=== PATIENT | female | born 1935 | race Caucasian/White ===

== ENCOUNTER → 2017-01-28 | Outpatient (CLI) | payer OTHER ==
[~2017-01-28] MED LIST: ASPEC81 PO; ASPI81TA28 PO; DYZ PO; HYDR1ELX13 PO; LEVO112T2 PO; PRLSR20 PO; TRIA37.5 PO
[2017-01-28 10:04] LABS: BASO % 0.9 %; BASO ABS # 0.08 K/uL (0-0.2); COMPLETE YES; EOS % 1.7 %; HEMATOCRIT 42.8 % (37-47); IG% 0.2 %; LYMPH % 20.2 %; LYMPH ABS # 1.89 K/uL (1.2-3.4); MEAN CELL VOLUME 87.3 fL (80-100); MEAN CORPUSCULAR HEMOGLOBIN 28.8 pg (25-34); MEAN CORPUSCULAR HGB CONC 32.9 g/dl (32-36); MEAN PLATELET VOLUME 10.4 fL (7.4-10.4); MONO % 10.7 %; NEUT % 66.3 %; PLATELET COUNT 248 K/uL (130-400); WHITE BLOOD COUNT 9.37 K/uL (4.8-10.8)
[2017-01-28 10:16] LABS: ALT/SGPT 18 U/L (12-78); BLOOD UREA NITROGEN 20 mg/dl (7-18); BUN/CREATININE RATIO 25.5 (10-20); CALCIUM 9.2 mg/dl (8.5-10.1); CARBON DIOXIDE 31 mmol/L (21-32); CHLORIDE 105 mmol/L (98-107); GLUCOSE 79 mg/dl (70-99); POTASSIUM 3.7 mmol/L (3.5-5.1); SODIUM 143 mmol/L (136-145)
[2017-01-28 10:26] LABS: ALB/GLOB RATIO 0.8 (0.9-2); ALKALINE PHOSPHATASE 95 U/L (45-117); AST/SGOT 15 U/L (15-37)
== END | disposition home or self-care (01) ==
LOC: C.LABVPSUW 09:39
PROVIDERS: ATTEND Internal Medicine Critical Care Medicine
DX: D64.9 Anemia, unspecified (principal); M10.9 Gout, unspecified; E03.9 Hypothyroidism, unspecified; N28.9 Disorder of kidney and ureter, unspecified

== ENCOUNTER 2017-02-24 10:56 | Emergency (ER) | payer OTHER ==
[~2017-02-24] VITALS: Ht 160 cm; Wt 69.4 kg
[~2017-02-24 10:56] MED LIST changes: -ASPI81TA28 PO; -TRIA37.5 PO
[2017-02-24 11:01] VITALS: TEMP 36.8; Ht 160 cm; Wt 69.4 kg
[2017-02-24 11:20] VITALS: O2SAT 95
[2017-02-24] MEDS ORDERED: PRLSR20 PO (11:34)
[2017-02-24] MEDS ORDERED: ASPI81TA28 PO (11:34)
[2017-02-24] MEDS ORDERED: TRIA37.5 PO (11:35)
[2017-02-24 11:36] LABS: HEMATOCRIT 43.2 % (37-47); MEAN CELL VOLUME 87.6 fL (80-100); MEAN CORPUSCULAR HGB CONC 33.1 g/dl (32-36); MEAN PLATELET VOLUME 10.4 fL (7.4-10.4); PLATELET COUNT 220 K/uL (130-400); RED BLOOD COUNT 4.93 M/uL (4.2-5.4)
--- NOTE | 2017-02-24 11:36 | DIAGNOSTIC IMAGING REPORT ---
CHEST ONE VIEW PORTABLE CLINICAL HISTORY: Atypical chest pain COMPARISON STUDY: No previous studies for comparison. FINDINGS: The cardiac and mediastinal contours remain stable. No pneumothorax visualized. There is no failure. There is no lobar consolidation. There is minor left basilar atelectasis/scarring. Increased markings within the left apex, likely representing a summation.[ IMPRESSION: AP portable study. No evidence of failure. No evidence of lobar consolidation. Electronically signed by: Carlos Torres M.D. 02/24/2017 11:34 AM Dictated Date/Time: 02/24/2017 11:33 AM
[2017-02-24 11:50] LABS: PARTIAL THROMBOPLASTIN RATIO 1.1; PROTHROMBIN TIME (PATIENT) 10.5 SECONDS (9.0-12.0)
[2017-02-24 11:58] LABS: BUN/CREATININE RATIO 21.3 (10-20); CALCIUM 9.4 mg/dl (8.5-10.1); CREATININE 0.76 mg/dl (0.60-1.20); POTASSIUM 3.6 mmol/L (3.5-5.1)
[2017-02-24 12:03] LABS: ALB/GLOB RATIO 0.9 (0.9-2); CKMB/CK RATIO 1.6 (0-3.0)
[2017-02-24] MEDS ORDERED: OPTIRAY 320 IV PRN (13:30)
--- NOTE | 2017-02-24 14:07 | DIAGNOSTIC IMAGING REPORT ---
CHEST CTA for PULMONARY ARTERIES CT DOSE: 397.14 mGycm HISTORY: Chest pain dyspnea TECHNIQUE: Multiaxial CT images of the chest were performed following the intravenous administration of contrast to evaluate the pulmonary arteries. Maximal intensity projection images were also obtained. COMPARISON STUDY: None. FINDINGS: There is a normal caliber thoracic aorta with no evidence for dissection. There is no evidence for pulmonary embolus. Somewhat compromised exam due to respiratory and somatic motion. Trace pleural fluid posterior costophrenic angles. Mild nonspecific mid and lower lung interstitial change. Small fixed hiatal hernia. IMPRESSION: 1. No evidence for pulmonary embolus.. 2. Very small bilateral pleural effusions. 3. Nonspecific bibasilar interstitial prominence. 4. Small hiatal hernia. Electronically signed by: Eber Benedict M.D. 02/24/2017 2:06 PM Dictated Date/Time: 02/24/2017 2:01 PM
--- NOTE | 2017-02-24 14:24 | EMERGENCY ROOM VISIT NOTE ---
History Report prepared by Parth: Segundo Serrano Under the Supervision of: Dr. Pawel Jones M.D. First contact with patient: 12:25 Chief Complaint: CHEST PAIN Stated Complaint: CHEST PAIN Nursing Triage Summary: pt reports chets pain started yesterday. History of Present Illness The patient is a 81 year old female who presents to the Emergency Room with complaints of persistent chest pain beginning yesterday. She states that she woke up with pain in her left shoulder and arm yesterday as well. She states that the pain in her shoulder and arm has resolved, but her chest pain is still present. The patient states that her chest pain is worsened with movement and deep breathing. She is on Prilosec, aspirin and a water pill. She denies any increased leg swelling, nausea, vomiting, abdominal pain, or SOB. Source of History: patient, friend Onset: Yesterday Position: chest Timing: other (persistent) Modifying Factors (Worsening): breathing (deep), movement Associated Symptoms: No SOB, No nausea, No vomiting Note: The patient denies any increased leg swelling. She also complains of resolved left shoulder and left arm pain. Review of Systems See HPI for pertinent positives & negatives. A total of 10 systems reviewed and were otherwise negative. Past Medical & Surgical Medical Problems: (1) Diverticulitis (2) Diverticulosis (3) Gout (4) H/O gastroesophageal reflux (GERD) (5) HTN (hypertension) (6) Hypothyroidism Old medical records were reviewed. Nurse's notes were reviewed and I agree with. Family History No pertinent family history stated. Social History Smoking Status: Never Smoker Drug Use: none Marital Status: Occupation Status: retired Current/Historical Medications Scheduled Aspirin (Aspirin Ec), 324 MG PO DAILY Omeprazole (Prilosec), 20 MG PO DAILY Triamterene/Hctz (Dyazide 37.5MG/25MG), 1 CAP PO DAILY Allergies Coded Allergies: No Known Allergies (Verified , 03/01/11) Physical Exam Vital Signs Date Time Temp Pulse Resp B/P (MAP) Pulse Ox O2 Delivery O2 Flow Rate FiO2 02/24/17 14:34 75 18 144/115 95 02/24/17 13:23 68 02/24/17 13:08 71 20 171/94 94 02/24/17 12:00 69 15 151/69 02/24/17 11:20 95 Room Air 02/24/17 11:16 70 02/24/17 11:01 36.8 74 18 156/76 93 Room Air Physical Exam General: Non ill appearing older female in no acute distress. HEENT: Normal cephalic atraumatic. Pupils are equal round and reactive to light. Extraocular movements are intact. Oropharynx is pink with moist mucous membranes. No swelling of the mouth lips or tongue. Neck: Supple with a midline trachea. No meningeal signs or stiffness, no JVD or bruits. No Stridor. Chest: Clear to auscultation bilaterally. No wheezes or rhonchi. No increased work of breathing. Heart: regular rate and rhythm. Abdomen: Soft nontender, nondistended without rebound guarding or rigidity. Extremities: No cyanosis or clubbing. No calf tenderness or assymetry. Trace pedal edema bilaterally, left greater than right. Spine/Back. Non tender to palpation. No CVA tenderness Skin: Good turgor without rashes. Neurologic exam: Cranial nerves two through 12 are intact. Motor and sensation are intact and symmetrical throughout. Medical Decision & Procedures ER Provider Diagnostic Interpretation: Radiology results as stated below per my review and radiologist interpretation: CHEST ONE VIEW PORTABLE FINDINGS: The cardiac and mediastinal contours remain stable. No pneumothorax visualized. There is no failure. There is no lobar consolidation. There is minor left basilar atelectasis/scarring. Increased markings within the left apex, likely representing a summation.[ IMPRESSION: AP portable study. No evidence of failure. No evidence of lobar consolidation. Electronically signed by: Carlos Torres M.D. CHEST CTA for PULMONARY ARTERIES FINDINGS: There is a normal caliber thoracic aorta with no evidence for dissection. There is no evidence for pulmonary embolus. Somewhat compromised exam due to respiratory and somatic motion. Trace pleural fluid posterior costophrenic angles. Mild nonspecific mid and lower lung interstitial change. Small fixed hiatal hernia. IMPRESSION: 1. No evidence for pulmonary embolus.. 2. Very small bilateral pleural effusions. 3. Nonspecific bibasilar interstitial prominence. 4. Small hiatal hernia. Electronically signed by: Eber Benedict M.D. Laboratory Results 02/24/17 11:20 02/24/17 11:20 Test 02/24/17 11:20 02/24/17 11:25 Red Blood Count 4.93 M/uL (4.2-5.4) Mean Corpuscular Volume 87.6 fL (80-100) Mean Corpuscular Hemoglobin 29.0 pg (25-34) Mean Corpuscular Hemoglobin Concent 33.1 g/dl (32-36) RDW Standard Deviation 46.2 fL (36.4-46.3) RDW Coefficient of Variation 14.4 % (11.5-14.5) Mean Platelet Volume 10.4 fL (7.4-10.4) Prothrombin Time 10.5 SECONDS (9.0-12.0) Prothromb Time International Ratio 1.0 (0.9-1.1) Activated Partial Thromboplast Time 28.0 SECONDS (21.0-31.0) Partial Thromboplastin Ratio 1.1 D-Dimer 690 ug/L FEU (0-500) Anion Gap 7.0 mmol/L (3-11) Est Creatinine Clear Calc Drug Dose 52.4 ml/min Estimated GFR () 84.1 Estimated GFR (Non- 72.5 BUN/Creatinine Ratio 21.3 (10-20) Calcium Level 9.4 mg/dl (8.5-10.1) Total Bilirubin 1.2 mg/dl (0.2-1) Aspartate Amino Transf (AST/SGOT) 20 U/L (15-37) Alanine Aminotransferase (ALT/SGPT) 19 U/L (12-78) Alkaline Phosphatase 106 U/L (45-117) Total Creatine Kinase 74 U/L (26-192) Creatine Kinase MB 1.2 ng/ml (0.5-3.6) Creatine Kinase MB Ratio 1.6 (0-3.0) Total Protein 7.4 gm/dl (6.4-8.2) Albumin 3.4 gm/dl (3.4-5.0) Globulin 4.0 gm/dl (2.5-4.0) Albumin/Globulin Ratio 0.9 (0.9-2) Bedside Troponin I < 0.030 ng/ml (0-0.045) Laboratory studies as stated above per my review. ECG Indication: chest pain Rate (beats per minute): 74 Rhythm: normal sinus Findings: PAC, other (Low voltage. Poor R-wave progession ) Comparison ECG Date: January 19, 2010 Change: PACs are now present. ED Course 1226: Past medical records reviewed. The patient was evaluated in room C8, and a complete history and physical examination were performed. 1412: Upon reevaluation, the patient is resting comfortably. She would like to leave. I discussed the results and treatment plan with her. She verbalized agreement of the treatment plan. The patient was discharged home. Medical Decision Differentials include, but are not limited to; acute coronary syndrome, pneumothorax, PE, NE, and electrolyte or metabolic abnormality. Blood pressure Screening: Patient was found to have an elevated blood pressure and was referred to their primary doctor for recheck and further treatment. Medication Reconciliation: I attest that I have personally reviewed the patient' s current medication list. This patient comes in as described above. She was placed in room CVA. She is here for treatment and evaluation of left-sided chest pain has been gone persistently since yesterday morning. It is worse if she breathes or moves it' s in the left shoulder. She looks well on exam. IV access established, EKG and multiple blood tests was obtained. EKG does not suggest acute coronary syndrome or arrhythmia and is not change compared to old chest x-ray was unremarkable. Her d-dimer was mildly elevated and in light of this, I did do a chest CT is no evidence of PE or significant cardiothoracic pathology seen on CT. Her cardiac enzymes are unremarkable I do not think is likely acute cardiac event her symptoms are very atypical and pleuritic additionally she's had symptoms constantly for over 24 hours and has normal cardiac enzymes. She' s no fever or white count to suggest infection and this may be more of a pleurisy or musculoskeletal-type situation. She strongly desires to go home. I will discharge home. I encouraged her to take aspirin today she does use anti -inflammatory such as ibuprofen if needed and was told to take these with food. She was encouraged to return if she has recurrence of symptoms, worsening symptoms, fever chills, any new problems or concerns. She is happy with plan and discharged to home. Impression Primary Impression: Pleurisy Additional Impression: Central chest pain Scribe Attestation The scribe's documentation has been prepared under my direction and personally reviewed by me in its entirety. I confirm that the note above accurately reflects all work, treatment, procedures, and medical decision making performed by me. Departure Information Dispostion Home / Self-Care Referrals Gigi Swan M.D. (PCP) Forms HOME CARE DOCUMENTATION FORM, IMPORTANT VISIT INFORMATION Patient Instructions [facility] [place] [employer] Additional Instructions Rest. Return if: Increasing pain, worsening of symptoms, shortness breath, fever or chills, any new problems or concerns Follow-up with your doctor on Friday for recheck May use an anti-inflammatory such as ibuprofen 400 mg every 6 hours. Take with food. Take an enteric-coated aspirin 81 mg a day Problem Qualifiers
[2017-02-24 14:34] VITALS: BP 144/115; PULSE 75; O2SAT 95
== END 2017-02-24 14:37 | disposition home or self-care (01) ==
LOC: C.EDB 11:01 → C.EDC 14:37
DX: R09.1 Pleurisy (principal); R07.9 Chest pain, unspecified; I10 Essential (primary) hypertension; E03.9 Hypothyroidism, unspecified; K21.9 Gastro-esophageal reflux disease without esophagitis; K57.90 Diverticulosis of intestine, part unspecified, without perforation or abscess without bleeding; M10.9 Gout, unspecified; Z79.82 Long term (current) use of aspirin

== ENCOUNTER 2017-12-27 18:38 | Inpatient (IN) | payer OTHER ==
[~2017-12-27] VITALS: Ht 160 cm; Wt 65.6 kg
[~2017-12-27 18:38] MED LIST changes: -ASPEC81 PO; +ASPI81TA28 PO; -DYZ PO; -HYDR1ELX13 PO; -LEVO112T2 PO; +TRIA37.5 PO
[2017-12-27 19:27] LABS: BASO % 0.7 %; BASO ABS # 0.06 K/uL (0-0.2); EOS % 1.3 %; EOS ABS # 0.11 K/uL (0-0.5); HEMATOCRIT 39.7 % (37-47); HEMOGLOBIN 13.8 g/dL (12.0-16.0); IG# 0.03 K/uL (0.00-0.02); LYMPH ABS # 2.22 K/uL (1.2-3.4); MEAN CELL VOLUME 93.6 fL (80-100); MEAN CORPUSCULAR HEMOGLOBIN 32.5 pg (25-34); MEAN CORPUSCULAR HGB CONC 34.8 g/dl (32-36); MEAN PLATELET VOLUME 10.2 fL (7.4-10.4); MONO % 9.7 %; MONO ABS # 0.83 K/uL (0.11-0.59); NEUT % 61.9 %; PLATELET COUNT 231 K/uL (130-400); RED CELL DISTRIBUTION WIDTH CV 14.4 % (11.5-14.5); WHITE BLOOD COUNT 8.55 K/uL (4.8-10.8)
[2017-12-27 19:35] LABS: ALBUMIN 3.6 gm/dl (3.4-5.0); ALT/SGPT 15 U/L (12-78); AST/SGOT 26 U/L (15-37); BLOOD UREA NITROGEN 15 mg/dl (7-18); CALCIUM 8.8 mg/dl (8.5-10.1); CARBON DIOXIDE 25 mmol/L (21-32); CREATININE 0.76 mg/dl (0.60-1.20); GLUCOSE 102 mg/dl (70-99); POTASSIUM 3.3 mmol/L (3.5-5.1); SODIUM 139 mmol/L (136-145)
[2017-12-27 19:37] LABS: PTT PATIENT 25.9 SECONDS (21.0-31.0)
[2017-12-27] MEDS ORDERED: LEVO125T5 PO (19:38)
[2017-12-27] MEDS ORDERED: ASTN (19:38)
--- NOTE | 2017-12-27 19:42 | EMERGENCY ROOM VISIT NOTE ---
History Report prepared by Parth: Staci Carlson Under the Supervision of: Dr. Ida Putnam M.D. First contact with patient: 19:05 Chief Complaint: SYNCOPE Stated Complaint: FALL/ HEAD LAC, CONFUSED Nursing Triage Summary: Patient arrived via BLS from [place]. Patient believed to have had a syncopal episode. Patient recalls walking to door, does not recall answering door. Patient recalls going shopping during the day, does not recall where she went shopping. Patient found sitting on floor by friend, friend states patient kept calling out that she was coming to answer the door, but when she got inside she found her sitting on the floor with her legs extended out in front of her. Laceration noted to posterior portion of patients head. +head trauma, +LOC. EMS states patient confused and hypertensive. Patient A&Ox3, recalls month but does not recall year. +1 BLE pitting edema noted. History of Present Illness The patient is an 82 year old female who presents to the Emergency Room with complaints of an episode of syncope occurring prior to arrival. The patient's friend states that she had dropped her off about 3.5 hours ago and the patient had gone to [employer]. She states that a little before 1800 she came back and was knocking on the door. She reports that she heard the patient saying she was coming to the door multiple times, but states she never opened the door. She reports that she grabbed the spare gloria and let herself in. She states that she found the patient in the entry way with her feet straight out and her head against the wall. The patient states that [facility] but does not remember what she bought there. She states that she doesn't remember having any difficulties driving. She reports that she does not remember falling. The patient's friend notes that there is a small cut on the patient's head. The patient complains of her head hurting. The patient denies vomiting, neck pain, and falling often. The patient notes that she always has some leg swelling. The patient notes that she takes 4 baby Aspirin a day, but states that she takes her medications when she feels like she needs them. She states that she does not remember being on blood pressure medication. Per EMR records, the patient is on Dyazide. Source of History: patient, friend Onset: prior to arrival Position: other (global) Quality: other (syncope) Timing: other (episode) Associated Symptoms: No neck pain, No vomiting Note: The patient complains of head pain and not remembering falling. Review of Systems See HPI for pertinent positives & negatives. A total of 10 systems reviewed and were otherwise negative. Past Medical & Surgical Medical Problems: (1) Diverticulitis (2) Diverticulosis (3) Fall (4) Gout (5) H/O gastroesophageal reflux (GERD) (6) HTN (hypertension) (7) Hypothyroidism Family History Heart disease Social History Smoking Status: Former Smoker Drug Use: none Marital Status: Housing Status: lives alone Occupation Status: retired Current/Historical Medications Scheduled Aspirin (Aspirin Ec), 81 MG PO DAILY Omeprazole (Prilosec), 20 MG PO DAILY Triamterene/Hctz (Dyazide 37.5MG/25MG), 1 CAP PO DAILY Scheduled PRN Azelastine Hcl (Astelin Nasal [place]), 1-2 SPRAYS NA BID PRN for UNDECIDED Levothyroxine Sodium (Levothyroxine Sodium), 125 MCG PO DAILY PRN for UNDECIDED Allergies Coded Allergies: No Known Allergies (Verified , 03/01/11) Physical Exam Vital Signs Date Time Temp Pulse Resp B/P (MAP) Pulse Ox O2 Delivery O2 Flow Rate FiO2 12/27/17 21:36 60 171/88 56 187/85 72 165/101 12/27/17 21:31 170/81 12/27/17 21:21 55 18 180/81 96 Room Air 12/27/17 20:31 54 12/27/17 20:27 59 18 213/97 97 Room Air 12/27/17 19:57 55 20 96 12/27/17 18:45 36.9 59 18 226/92 95 Room Air Physical Exam Vital signs reviewed. General: Well-appearing, in no significant distress. HEENT: No scleral icterus, PERRLA, neck supple. 5 cm abrasion to the crown of the head without significant bleeding. Cardiovascular: Regular rate and rhythm, no extra sounds. Pulmonary: Clear to auscultation bilaterally, normal work of breathing. Abdomen: Soft, nontender, nondistended, positive bowel sounds. Musculoskeletal: Atraumatic, 1+ pitting edema to bilateral lower extremities. Neurologic: Patient awake alert and oriented x 3, full strength in all 4 extremities. Cranial nerves 2 through 12 grossly intact. Unable to recall the events preceding the apparent fall. Skin: Warm, dry, no rash Medical Decision & Procedures ER Provider Diagnostic Interpretation: Radiology results as stated below per my review and radiologist interpretation: CHEST ONE VIEW PORTABLE CLINICAL HISTORY: 82 years-old Female presenting with AMS. TECHNIQUE: Portable upright AP view of the chest was obtained. COMPARISON: 02/24/2017. FINDINGS: Atherosclerosis of aortic arch. Cardiac silhouette mildly enlarged. Left basilar opacity similar to prior with a small left pleural effusion. No pneumothorax. Right lung and pleural space clear. Degenerative changes of the thoracic spine. Radiodensity projecting over the epigastrium is likely external to the patient. IMPRESSION: 1. Small left pleural effusion with suspected left basilar atelectasis. Electronically signed by: Gigi Claros M.D. 12/27/2017 8:38 PM Dictated Date/Time: 12/27/2017 8:37 PM CERVICAL SPINE W/O CLINICAL HISTORY: 82 years-old Female presenting with AMS, CHI, syncope, loss of consciousness. TECHNIQUE: Multidetector CT of the cervical spine was performed 1 IV contrast: None. A dose lowering technique was used consistent with the principles of ALARA (as low as reasonably achievable). COMPARISON: None. CT DOSE (mGy.cm): The estimated cumulative dose is 1269.55. FINDINGS: Case Checker topogram: Unremarkable. Normal cervical lordosis. Vertebral bodies maintain normal height and alignment. Intervertebral discs spaces preserved no advanced degenerative change. Osseous fusion across the left facet joints of C3-4. No acute fracture or subluxation. Facet arthropathy noted at several levels of mild degree. No significant osseous spinal canal or neural foraminal narrowing. Skull base intact. Lung apices demonstrate a 13 mm focal groundglass opacity at the left apex (series 5 image 489). Pleural parenchymal scarring suggested at the right apex. Paraspinal soft tissues within normal limits allowing for noncontrast technique. Limited intracranial evaluation within normal limits. IMPRESSION: 1. No acute osseous injury of the cervical spine. 2. Minimal degenerative change of the cervical spine. 3. Focal 13 mm groundglass nodule at the left apex. This was present on prior CT chest from February. Follow-up nonemergent dedicated CT chest recommended as an adenomatous lesion is not excluded. Please refer to below summary of Fleischner Society 2017 recommendations for follow-up of incidental CT nodules (H Fabrizio et al. Guidelines for management of incidental pulmonary nodules detected on CT images: From the Fleischner Society 2017. Radiology 2017; 284: 228-243.) SOLID NODULES Single nodule; size < 6 mm * Low risk patients: No routine follow-up * High risk patients: Optional CT at 12 months Single nodule; size 6-8 mm * Low risk patients: CT at 6-12 months, then consider CT at 18-24 months * High risk patients: CT at 6-12 months, then at 18-24 months Single nodule; size > 8 mm * Either low or high risk patients: Considered CT at 3 months, PET/CT, or tissue sampling Multiple nodules; size < 6 mm * Low risk patients: No routine follow up * High risk patients: Optional CT at 12 months Multiple nodules; size 6-8 mm * Low risk patients: CT at 3-6 months, then consider CT at 18-24 months * High risk patients: CT at 3-6 months, then at 18-24 months Multiple nodules; size > 8 mm * Low risk patients: CT at 3-6 months, then consider at 18-24 months * High risk patients: CT at 3-6 months, then at 18-24 months SUBSOLID NODULES Single ground-glass nodule * Nodule size < 6 mm: No routine follow-up * Nodule size > or = 6 mm: CT at 6-12 months to confirm persistence, then CT every 2 years until 5 years Single part-solid nodule * Nodule size < 6 mm: No routine follow-up * Nodules size > or = 6 mm: CT at 3-6 months to confirm persistence. If unchanged and solid component remains < 6 mm, annual CT should be performed for 5 years Multiple nodules * Nodule size < 6 mm: CT at 3-6 months. If stable, consider CT at 2 and 4 years. * Nodules size > or = 6 mm: CT at 3-6 months. Subsequent management based on the most suspicious nodule(s) NOTE: 1) These guidelines apply to incidental nodules. These guidelines do NOT apply to patients younger than 35 years, immunocompromised patients, or patients with cancer. 2) Risk categories: * Low risk patients: Minimal or absent history of smoking and/or other known risk factors * High risk patients: History of smoking, exposure to other carcinogens, emphysema, fibrosis, upper lobe location, family history of lung cancer, etc. 3) If a nodule up to 8 mm is partly solid or is ground glass, further follow-up is required after 24 months to exclude possible slow growing adenocarcinoma. Electronically signed by: Gigi Claros M.D. 12/27/2017 9:11 PM Dictated Date/Time: 12/27/2017 9:07 PM HEAD WITHOUT CONTRAST (CT) CLINICAL HISTORY: 82 years-old Female presenting with AMS, head lac. TECHNIQUE: Multidetector CT imaging of the head was performed without the use of intravenous contrast. IV contrast: None. A dose lowering technique was used consistent with the principles of ALARA (as low as reasonably achievable). COMPARISON: 01/19/2010. CT DOSE (mGy.cm): The estimated cumulative dose is 1269.55 mGy.cm. FINDINGS: Case Checker topogram: Unremarkable. Proportional ventricular and sulcal prominence, likely age-related parenchymal volume loss. Periventricular and subcortical white matter hypoattenuation, nonspecific but likely indicative of chronic small vessel ischemic change. No mass effect or midline shift. No hemorrhage or acute territorial infarct. No extra-axial fluid collection. Paranasal sinuses and mastoid air cells clear. Calvarium intact. Moderate subgaleal hematoma and overlying subcutaneous hematoma at the left parietal vertex. No subjacent osseous injury. IMPRESSION: 1. No acute intracranial abnormality. 2. Prominent subgaleal hematoma and overlying subcutaneous hematoma at the left parietal vertex. No subjacent osseous injury. Electronically signed by: Gigi Claros M.D. 12/27/2017 8:24 PM Dictated Date/Time: 12/27/2017 8:22 PM Laboratory Results Test 12/27/17 18:33 Immature Granulocyte % (Auto) 0.4 % White Blood Count 8.55 K/uL (4.8-10.8) Red Blood Count 4.24 M/uL (4.2-5.4) Hemoglobin 13.8 g/dL (12.0-16.0) Hematocrit 39.7 % (37-47) Mean Corpuscular Volume 93.6 fL (80-100) Mean Corpuscular Hemoglobin 32.5 pg (25-34) Mean Corpuscular Hemoglobin Concent 34.8 g/dl (32-36) Platelet Count 231 K/uL (130-400) Mean Platelet Volume 10.2 fL (7.4-10.4) Neutrophils (%) (Auto) 61.9 % Lymphocytes (%) (Auto) 26.0 % Monocytes (%) (Auto) 9.7 % Eosinophils (%) (Auto) 1.3 % Basophils (%) (Auto) 0.7 % Neutrophils # (Auto) 5.30 K/uL (1.4-6.5) Lymphocytes # (Auto) 2.22 K/uL (1.2-3.4) Monocytes # (Auto) 0.83 K/uL (0.11-0.59) Eosinophils # (Auto) 0.11 K/uL (0-0.5) Basophils # (Auto) 0.06 K/uL (0-0.2) Immature Granulocyte # (Auto) 0.03 K/uL (0.00-0.02) Prothrombin Time 10.1 SECONDS (9.0-12.0) Prothromb Time International Ratio 1.0 (0.9-1.1) Activated Partial Thromboplast Time 25.9 SECONDS (21.0-31.0) Partial Thromboplastin Ratio 1.0 Magnesium Level 1.9 mg/dl (1.8-2.4) Total Bilirubin 0.4 mg/dl (0.2-1) Direct Bilirubin < 0.1 mg/dl (0-0.2) Aspartate Amino Transf (AST/SGOT) 26 U/L (15-37) Alanine Aminotransferase (ALT/SGPT) 15 U/L (12-78) Alkaline Phosphatase 93 U/L (45-117) Total Protein 7.6 gm/dl (6.4-8.2) Albumin 3.6 gm/dl (3.4-5.0) Thyroid Stimulating Hormone (TSH) 187.000 uIu/ml (0.300-4.500) Free Thyroxine 0.26 ng/dl (0.80-1.60) Free Triiodothyronine 1.35 pg/ml (2.30-4.20) Laboratory results per my review. 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 The patient was evaluated in room B2. A complete history and physical examination was performed. 2018: Ordered Triamterene/HCTZ 1 cap PO. 2129: Ordered Zofran Odt 4 mg PO. 2151: I reviewed the patient's case with Dr. Isrrael CAMEJO Hospitalist. He will evaluate the patient for further management. 2210: I reevaluated the patient and updated her on her test results and the treatment plan. Medical Decision Differential diagnosis: Etiologies such as vasovagal event, infection, hypoglycemia, electrolyte abnormalities, cardiac sources, intracerebral event, toxicologic, neurologic, as well as others were entertained. This patient was evaluated and appeared to be in no significant distress. IV access was obtained and laboratory work was drawn. The patient was placed on the panel monitor and found to be in a sinus bradycardia. Patient's laboratory work is significant for markedly elevated TSH, moderately depleted free T3 and free T4. Urinalysis is negative. She was found to be markedly hypertensive. This did improve but not significantly. Patient was given Dyazide 37.5/25, her home dose. CT scan of the head reveals no acute abnormality, with the exception of a scalp hematoma. Given the events preceding , the patient will be evaluated by the hospitalist service for further management. Medication Reconcilliation Current Medication List: was personally reviewed by me Blood Pressure Screening Patient's blood pressure: Elevated blood pressure Will be further monitored by the hospitalist. Consults Time Called: 2131 Consulting Physician: Dr. Isrrael CAMEJO Hospitalist Returned Call: 2151 I reviewed the patient's case with Dr. Isrrael Riceist. He will evaluate the patient for further management. Impression Primary Impression: Syncope Additional Impressions: Closed head injury Scalp abrasion Scribe Attestation The scribe's documentation has been prepared under my direction and personally reviewed by me in its entirety. I confirm that the note above accurately reflects all work, treatment, procedures, and medical decision making performed by me. Departure Information Dispostion Being Evaluated By Hospitalist Referrals Gigi Swan M.D. (PCP) Patient Instructions My [facility] Problem Qualifiers
[2017-12-27 20:06] LABS: ALKALINE PHOSPHATASE 93 U/L (45-117); TOTAL PROTEIN 7.6 gm/dl (6.4-8.2)
[2017-12-27] MEDS ORDERED: TRIAMTERENE/HCTZ 37.5/25MG CAP PO STA (20:19)
--- NOTE | 2017-12-27 20:25 | DIAGNOSTIC IMAGING REPORT ---
HEAD WITHOUT CONTRAST (CT) CLINICAL HISTORY: 82 years-old Female presenting with AMS, head lac. TECHNIQUE: Multidetector CT imaging of the head was performed without the use of intravenous contrast. IV contrast: None. A dose lowering technique was used consistent with the principles of ALARA (as low as reasonably achievable). COMPARISON: 01/19/2010. CT DOSE (mGy.cm): The estimated cumulative dose is 1269.55 mGy.cm. FINDINGS: Transit Mix Operator topogram: Unremarkable. Proportional ventricular and sulcal prominence, likely age-related parenchymal volume loss. Periventricular and subcortical white matter hypoattenuation, nonspecific but likely indicative of chronic small vessel ischemic change. No mass effect or midline shift. No hemorrhage or acute territorial infarct. No extra-axial fluid collection. Paranasal sinuses and mastoid air cells clear. Calvarium intact. Moderate subgaleal hematoma and overlying subcutaneous hematoma at the left parietal vertex. No subjacent osseous injury. IMPRESSION: 1. No acute intracranial abnormality. 2. Prominent subgaleal hematoma and overlying subcutaneous hematoma at the left parietal vertex. No subjacent osseous injury. Electronically signed by: Gigi Claros M.D. 12/27/2017 8:24 PM Dictated Date/Time: 12/27/2017 8:22 PM
--- NOTE | 2017-12-27 20:40 | DIAGNOSTIC IMAGING REPORT ---
CHEST ONE VIEW PORTABLE CLINICAL HISTORY: 82 years-old Female presenting with AMS. TECHNIQUE: Portable upright AP view of the chest was obtained. COMPARISON: 02/24/2017. FINDINGS: Atherosclerosis of aortic arch. Cardiac silhouette mildly enlarged. Left basilar opacity similar to prior with a small left pleural effusion. No pneumothorax. Right lung and pleural space clear. Degenerative changes of the thoracic spine. Radiodensity projecting over the epigastrium is likely external to the patient. IMPRESSION: 1. Small left pleural effusion with suspected left basilar atelectasis. Electronically signed by: Gigi Claros M.D. 12/27/2017 8:38 PM Dictated Date/Time: 12/27/2017 8:37 PM
--- NOTE | 2017-12-27 21:12 | DIAGNOSTIC IMAGING REPORT ---
CERVICAL SPINE W/O CLINICAL HISTORY: 82 years-old Female presenting with AMS, CHI, syncope, loss of consciousness. TECHNIQUE: Multidetector CT of the cervical spine was performed 1 IV contrast: None. A dose lowering technique was used consistent with the principles of ALARA (as low as reasonably achievable). COMPARISON: None. CT DOSE (mGy.cm): The estimated cumulative dose is 1269.55. FINDINGS: Master Sheet Clerk topogram: Unremarkable. Normal cervical lordosis. Vertebral bodies maintain normal height and alignment. Intervertebral discs spaces preserved no advanced degenerative change. Osseous fusion across the left facet joints of C3-4. No acute fracture or subluxation. Facet arthropathy noted at several levels of mild degree. No significant osseous spinal canal or neural foraminal narrowing. Skull base intact. Lung apices demonstrate a 13 mm focal groundglass opacity at the left apex (series 5 image 489). Pleural parenchymal scarring suggested at the right apex. Paraspinal soft tissues within normal limits allowing for noncontrast technique. Limited intracranial evaluation within normal limits. IMPRESSION: 1. No acute osseous injury of the cervical spine. 2. Minimal degenerative change of the cervical spine. 3. Focal 13 mm groundglass nodule at the left apex. This was present on prior CT chest from February. Follow-up nonemergent dedicated CT chest recommended as an adenomatous lesion is not excluded. Please refer to below summary of Fleischner Society 2017 recommendations for follow-up of incidental CT nodules (H Fabrizio et al. Guidelines for management of incidental pulmonary nodules detected on CT images: From the Fleischner Society 2017. Radiology 2017; 284: 228-243.) SOLID NODULES Single nodule; size < 6 mm * Low risk patients: No routine follow-up * High risk patients: Optional CT at 12 months Single nodule; size 6-8 mm * Low risk patients: CT at 6-12 months, then consider CT at 18-24 months * High risk patients: CT at 6-12 months, then at 18-24 months Single nodule; size > 8 mm * Either low or high risk patients: Considered CT at 3 months, PET/CT, or tissue sampling Multiple nodules; size < 6 mm * Low risk patients: No routine follow up * High risk patients: Optional CT at 12 months Multiple nodules; size 6-8 mm * Low risk patients: CT at 3-6 months, then consider CT at 18-24 months * High risk patients: CT at 3-6 months, then at 18-24 months Multiple nodules; size > 8 mm * Low risk patients: CT at 3-6 months, then consider at 18-24 months * High risk patients: CT at 3-6 months, then at 18-24 months SUBSOLID NODULES Single ground-glass nodule * Nodule size < 6 mm: No routine follow-up * Nodule size > or = 6 mm: CT at 6-12 months to confirm persistence, then CT every 2 years until 5 years Single part-solid nodule * Nodule size < 6 mm: No routine follow-up * Nodules size > or = 6 mm: CT at 3-6 months to confirm persistence. If unchanged and solid component remains < 6 mm, annual CT should be performed for 5 years Multiple nodules * Nodule size < 6 mm: CT at 3-6 months. If stable, consider CT at 2 and 4 years. * Nodules size > or = 6 mm: CT at 3-6 months. Subsequent management based on the most suspicious nodule(s) NOTE: 1) These guidelines apply to incidental nodules. These guidelines do NOT apply to patients younger than 35 years, immunocompromised patients, or patients with cancer. 2) Risk categories: * Low risk patients: Minimal or absent history of smoking and/or other known risk factors * High risk patients: History of smoking, exposure to other carcinogens, emphysema, fibrosis, upper lobe location, family history of lung cancer, etc. 3) If a nodule up to 8 mm is partly solid or is ground glass, further follow-up is required after 24 months to exclude possible slow growing adenocarcinoma. Electronically signed by: Gigi Claros M.D. 12/27/2017 9:11 PM Dictated Date/Time: 12/27/2017 9:07 PM
[2017-12-27] MEDS ORDERED: ONDANSETRON 4MG OD TAB PO STA (21:30)
[2017-12-27] MEDS ORDERED: ACETAMINOPHEN 325 MG TAB PO PRN (22:45)
[2017-12-27] MEDS ORDERED: MAGNESIUM HYDROXIDE SUSP 30 ML UDC PO PRN (22:45)
[2017-12-27] MEDS ORDERED: POLYETHYLENE (MIRALAX) 17 GM PACK PO PRN (22:45)
[2017-12-27] MEDS ORDERED: ONDANSETRON INJ 2 MG/ML 2 ML VIAL IV PRN (22:45)
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
[2017-12-27 23:43] VITALS: BP 211/81; PULSE 59; TEMP 36.7; Ht 160 cm; Wt 65.6 kg
[2017-12-28] VITALS (8 sets, daily range): BP systolic 100–197; BP diastolic 57–92; PULSE 53–67; TEMP 36.5–36.8; O2SAT 95–98
[2017-12-28] MEDS: LEVOTHYROXINE 125 MCG TAB PO SCH (05:44)
[2017-12-28 06:08] LABS: HEMATOCRIT 40.9 % (37-47); HEMOGLOBIN 13.9 g/dL (12.0-16.0); MEAN CELL VOLUME 94.2 fL (80-100); MEAN PLATELET VOLUME 9.8 fL (7.4-10.4); PLATELET COUNT 220 K/uL (130-400); RED CELL DISTRIBUTION WIDTH CV 14.3 % (11.5-14.5); RED CELL DISTRIBUTION WIDTH SD 49.4 fL (36.4-46.3); WHITE BLOOD COUNT 9.51 K/uL (4.8-10.8)
[2017-12-28 06:41] LABS: CALCIUM 8.9 mg/dl (8.5-10.1); CREATININE 0.71 mg/dl (0.60-1.20); POTASSIUM 3.3 mmol/L (3.5-5.1)
[2017-12-28] MEDS: TRIAMTERENE/HCTZ 37.5/25MG CAP PO SCH (08:40)
[2017-12-28] MEDS: PANTOprazole SOD 40 MG TAB PO SCH (08:40)
[2017-12-28] MEDS: ASPIRIN 81 MG ECTAB PO SCH (08:40)
[2017-12-28] MEDS ORDERED: POTASSIUM CHLORIDE 10 MEQ TABCR PO STA (08:59)
[2017-12-28] MEDS ORDERED: POTASSIUM CHLORIDE 20 MEQ/15 ML UDC PO STA (10:24)
--- NOTE | 2017-12-28 13:02 | DIAGNOSTIC IMAGING REPORT ---
BRAIN WITHOUT CONTRAST HISTORY: 82 years-old Female syncope acute syncope COMPARISON: Brain MRI 01/24/2010, CT head 12/27/2017 TECHNIQUE: Multiplanar multisequence MRI of the brain was obtained without contrast. FINDINGS: 2 mm focus of cortically based increased diffusion-weighted signal of the right parietal lobe is noted on image 16 series 4 without definite decreased signal on ADC map. Increased T2 signal on the malleus identified within this distribution suggesting possible T2 shine through. No definite additional areas of restricted diffusion identified. Midline structures including the corpus callosum, optic chiasm, pituitary and pineal glands appear unremarkable in the sagittal T1 series. There is no cerebellar tonsillar herniation. Degenerative changes of the cervical spine. 7 mm T2 hyperintense focus of the right wolfgang suggests remote lacunar infarction. There is moderate atrophy with ex vacuo ventriculomegaly. Extensive and confluent areas of T2/FLAIR prolongation are noted within the white matter of the cerebral hemispheres bilaterally which has progressed from comparison study 01/24/2010 compatible with advanced chronic microvascular ischemic changes. No acute intracranial hemorrhage, midline shift, abnormal intra-axial collections or hydrocephalus. Large posterior left parietal scalp hematoma is redemonstrated measuring up to 1.4 x 4.8 x 5.8 cm in AP, transverse and craniocaudal dimensions demonstrating areas of slightly increased intrinsic T1 signal and peripheral blooming artifact. Major flow voids at the level of the skull base appear patent. Orbits are unremarkable without evidence of prior left cataract repair. Minimal mucosal thickening of the ethmoid air cells. Skull appears intact. Soft tissues are otherwise unremarkable. IMPRESSION: 1. Large posterior left parietal scalp hematoma redemonstrated without acute intracranial hemorrhage. 2. 2 mm focus of cortically based increased diffusion-weighted signal of the right parietal lobe without definite decreased signal on the ADC map suggests T2 shine through with subacute lacunar infarction felt to be less likely. No large acute or subacute infarct identified. 3. Atrophy with extensive chronic microvascular ischemic changes. Remote lacunar infarction of the right wolfgang. The above report was generated using voice recognition software. It may contain grammatical, syntax or spelling errors. Electronically signed by: Ayan Neville M.D. 12/28/2017 1:01 PM Dictated Date/Time: 12/28/2017 12:52 PM
--- NOTE | 2017-12-28 13:11 | ECHOCARDIOGRAM REPORT ---
*NOTICE TO RECEIVING LIBERTARIAN AGENCY This information is strictly Confidential and protected under [place] law. [place] law prohibits you from making any further disclosure of this information unless further disclosure is expressly permitted by the written consent of the person to whom it pertains or is authorized by law. A general authorization for the release of medical or other information is not sufficient for this purpose. Hospital accepts no responsibility if the information is made available to any other person, INCLUDING THE PATIENT. Interpretation Summary * Name: RD WALTERS Study Date: 12/28/2017 10:26 AM BP: 167/70 mmHg * Patient Location: C.2T\S\S242\S\2 HR: 63 * : 1935 (M/d/yyyy) Gender: Female Height: 63 in * Age: 82 yrs Ethnicity: CA Weight: 149 lb * Ordering Physician: Teo Flaherty * Referring Physician: Self, Referred * Performed By: Delia Nixon RCS * * Reason For Study: SYNCOPE * BSA: 1.7 m2 * -- Conclusions -- * Left ventricular systolic function is normal. * No regional wall motion abnormalities noted. * Ejection Fraction = 65-70%. * There is mild concentric left ventricular hypertrophy. * Grade I diastolic dysfunction, (abnormal relaxation pattern). Procedure Details * A complete two-dimensional transthoracic echocardiogram was performed (2D, M-mode, Doppler and color flow Doppler). Left Ventricle * The left ventricle is grossly normal size. * There is mild concentric left ventricular hypertrophy. * Left ventricular systolic function is normal. * Ejection Fraction = 65-70%. * No regional wall motion abnormalities noted. Right Ventricle * The right ventricle is not well visualized. * The right ventricular systolic function is normal as assessed by tricuspid annular plane systolic excursion (TAPSE) (normal >1.5 cm). Atria * The left atrium is mildly dilated. * Right atrium not well visualized. * There is no evidence of atrial septal defect, but resolution does not allow assessment for a patent foramen ovale. Mitral Valve * The mitral valve is grossly normal. * There is no mitral valve stenosis. * Significant mitral regurgitation is absent. Tricuspid Valve * The tricuspid valve is not well visualized, but is grossly normal. * There is no tricuspid stenosis. * Significant tricuspid regurgitation is absent. Aortic Valve * The aortic valve is not well visualized. * The aortic valve opens well. * No hemodynamically significant valvular aortic stenosis. * There is no significant aortic regurgitation. Pulmonic Valve * The pulmonary valve is not well seen, but the Doppler examination is normal without significant regurgitation or stenosis. Great Vessels * The aortic root and proximal ascending aorta are normal sized. * The pulmonary is not well visualized. Pericardium/Pleural * There is no pericardial effusion. Great Vessels * Inferior vena cava not well visualized. Left Ventricular Diastolic Function * Grade I diastolic dysfunction, (abnormal relaxation pattern). MMode 2D Measurements and Calculations IVSd 1.5 cm IVSs 1.9 cm LVIDd 3.3 cm LVIDs 2.5 cm LVPWd 1.3 cm LVPWs 1.7 cm IVS/LVPW 1.2 FS 23.8 % EDV(Teich) 44.7 ml ESV(Teich) 23.0 ml EF(Teich) 48.6 % EDV(cubed) 36.5 ml ESV(cubed) 16.2 ml EF(cubed) 55.7 % % IVS thick 26.5 % % LVPW thick 33.4 % LV mass(C)d 161.9 grams LV mass(C)dI 94.9 grams/m\S\2 LV mass(C)s 182.9 grams LV mass(C)sI 107.2 grams/m\S\2 SV(Teich) 21.7 ml SI(Teich) 12.7 ml/m\S\2 SV(cubed) 20.3 ml SI(cubed) 11.9 ml/m\S\2 Ao root diam 3.0 cm Ao root area 7.0 cm\S\2 ACS 1.4 cm LVOT diam 2.0 cm LVOT area 3.1 cm\S\2 Doppler Measurements and Calculations MV E max pascual 66.9 cm/sec MV A max pascual 80.9 cm/sec MV E/A 0.83 MV P1/2t max pascual 66.4 cm/sec MV P1/2t 87.7 msec MVA(P1/2t) 2.5 cm\S\2 MV dec slope 221.9 cm/sec\S\2 MV dec time 0.25 sec Ao V2 max 121.7 cm/sec Ao max PG 5.9 mmHg Ao max PG (full) 0.79 mmHg ROSSY(V,A) 2.9 cm\S\2 ROSSY(V,D) 2.9 cm\S\2 LV V1 max PG 5.1 mmHg LV V1 max 113.2 cm/sec PA V2 max 95.8 cm/sec PA max PG 3.7 mmHg PI max pascual 142.4 cm/sec PI max PG 8.1 mmHg PI dec slope 92.6 cm/sec\S\2 PI P1/2t 450.3 msec
[2017-12-28] MEDS ORDERED: LISINOPRIL 5 MG TAB PO ONE (16:00)
--- NOTE | 2017-12-28 16:02 | Progress Note ---
Subjective Date of Service: December 28, 2017. Subjective Pt evaluation today including: conversation w/ patient, conversation w/ family , physical exam, chart review, lab review, review of studies, conversation w/ cosmetic sales consultant, review of inpatient medication list Posterior head pain after the fall no close morning, otherwise pleasant conversational no complaint, Problem List Medical Problems: (1) Central chest pain Status: Acute (2) Closed head injury Status: Acute (3) Pleurisy Status: Acute (4) Scalp abrasion Status: Acute (5) Syncope Status: Acute Review of Systems Constitutional: + weakness, + fatigue, No fever, No chills, No sweats, No weight loss, No problem reported Eyes: No worsening of vision, No eye pain, No redness, No discharge, No diplopia ENT: No hearing loss, No unusual epistaxis, No nasal symptoms, No sore throat, No tinnitus, No dental problems, No trouble swallowing Respiratory: No cough, No sputum, No wheezing, No shortness of breath, No dyspnea on exertion, No dyspnea at rest, No hemoptysis Cardiac: No chest pain, No orthopnea, No PND, No edema, No claudication, No palpitations Abdomen: No pain, No nausea, No vomiting, No diarrhea, No constipation Musculoskeletal: No joint pain, No muscle pain, No swelling, No calf pain Female : No dysuria, No urinary frequency, No hematuria, No incontinence, No abnormal vaginal bleeding, No vaginal discharge Neurologic: No memory loss, No paralysis, No weakness, No numbness/tingling, No vertigo, No balance problems Psychiatric: No depression symptoms, No anhedonism, No anxiety, No insomnia, No substance abuse Heme: No abnormal bleeding/bruising, No clotting problems, No swollen lymph nodes, No night sweats Endo: No fatigue, No excessive thirst, No excessive urination Skin: + see HPI, No rash, No itch, No new/changing skin lesions, No color change, No bleeding Objective Vital Signs Date Time Temp Pulse Resp B/P (MAP) Pulse Ox O2 Delivery O2 Flow Rate FiO2 12/28/17 15:33 36.5 53 18 197/77 (117) 98 Room Air 12/28/17 12:34 36.7 67 19 181/80 (113) 97 Room Air 12/28/17 12:00 Room Air 12/28/17 08:00 Room Air 12/28/17 07:07 36.7 54 18 167/70 (102) 96 Room Air 12/28/17 04:00 Room Air 12/28/17 03:35 36.7 57 18 163/87 (112) 97 Room Air 12/27/17 23:43 36.7 59 20 211/81 Room Air 12/27/17 22:50 60 18 175/86 12/27/17 21:36 60 171/88 56 187/85 72 165/101 12/27/17 21:31 170/81 12/27/17 21:21 55 18 180/81 96 Room Air 12/27/17 20:31 54 12/27/17 20:27 59 18 213/97 97 Room Air 12/27/17 19:57 55 20 96 12/27/17 18:45 36.9 59 18 226/92 95 Room Air Physical Exam General Appearance: WD/WN, no apparent distress, + thin Eyes: normal inspection, PERRL, EOMI, sclerae normal ENT: normal ENT inspection, hearing grossly normal, pharynx normal Neck: supple, no adenopathy, thyroid normal, no JVD, no carotid bruits, trachea midline Respiratory/Chest: chest non-tender, normal breath sounds, no respiratory distress, no accessory muscle use, + decreased breath sounds Cardiovascular: regular rate, rhythm, no edema, no gallop, no JVD, no murmur Abdomen: normal bowel sounds, non tender, soft, no organomegaly, no pulsatile mass Extremities: normal range of motion, non-tender, normal inspection, no pedal edema, no calf tenderness, normal capillary refill, pelvis stable Neurologic/Psychiatric: cheese maker II-XII nml as tested, no motor/sensory deficits, alert, normal mood/affect, oriented x 3 Skin: normal color, warm/dry, no rash Lymphatic: no adenopathy Laboratory Results Last 24 Hours Test 12/27/17 18:33 12/28/17 05:50 White Blood Count 8.55 K/uL 9.51 K/uL Red Blood Count 4.24 M/uL 4.34 M/uL Hemoglobin 13.8 g/dL 13.9 g/dL Hematocrit 39.7 % 40.9 % Mean Corpuscular Volume 93.6 fL 94.2 fL Mean Corpuscular Hemoglobin 32.5 pg 32.0 pg Mean Corpuscular Hemoglobin Concent 34.8 g/dl 34.0 g/dl Platelet Count 231 K/uL 220 K/uL Mean Platelet Volume 10.2 fL 9.8 fL Neutrophils (%) (Auto) 61.9 % Lymphocytes (%) (Auto) 26.0 % Monocytes (%) (Auto) 9.7 % Eosinophils (%) (Auto) 1.3 % Basophils (%) (Auto) 0.7 % Neutrophils # (Auto) 5.30 K/uL Lymphocytes # (Auto) 2.22 K/uL Monocytes # (Auto) 0.83 K/uL Eosinophils # (Auto) 0.11 K/uL Basophils # (Auto) 0.06 K/uL RDW Standard Deviation 49.0 fL 49.4 fL RDW Coefficient of Variation 14.4 % 14.3 % Immature Granulocyte % (Auto) 0.4 % Immature Granulocyte # (Auto) 0.03 K/uL Prothrombin Time 10.1 SECONDS Prothromb Time International Ratio 1.0 Activated Partial Thromboplast Time 25.9 SECONDS Partial Thromboplastin Ratio 1.0 Sodium Level 139 mmol/L 137 mmol/L Potassium Level 3.3 mmol/L 3.3 mmol/L Chloride Level 107 mmol/L 104 mmol/L Carbon Dioxide Level 25 mmol/L 27 mmol/L Anion Gap 7.0 mmol/L 6.0 mmol/L Blood Urea Nitrogen 15 mg/dl 11 mg/dl Creatinine 0.76 mg/dl 0.71 mg/dl Est Creatinine Clear Calc Drug Dose 52.4 ml/min 54.6 ml/min Estimated GFR () 83.5 90.7 Estimated GFR (Non- 72.0 78.2 BUN/Creatinine Ratio 20.1 15.7 Random Glucose 102 mg/dl 100 mg/dl Calcium Level 8.8 mg/dl 8.9 mg/dl Magnesium Level 1.9 mg/dl Total Bilirubin 0.4 mg/dl Direct Bilirubin < 0.1 mg/dl Aspartate Amino Transf (AST/SGOT) 26 U/L Alanine Aminotransferase (ALT/SGPT) 15 U/L Alkaline Phosphatase 93 U/L Total Protein 7.6 gm/dl Albumin 3.6 gm/dl Thyroid Stimulating Hormone (TSH) 187.000 uIu/ml Free Thyroxine 0.26 ng/dl Free Triiodothyronine 1.35 pg/ml Assessment and Plan 82 y/o F admitted on December 27, 2017 because of with PMH of hypothyroidism, HTN presented to the ER after she sustained a fall Unwitnessed fall with posterior scalp hematoma: mechanical vs syncopal Likely syncopal, patient doesn't remember the events leading to the fall. Orthostatic vital was negative, brain MRI has rule out acute or subacute CVA lung nodule in the left apex area 1.3 cm, need to follow-up with PCP according to current guidelines. PCP please follow-up after patient discharged Hypothyroidism with medicine noncompliance: Patient and her friend both saying she did not take her medicine regularly TSH 187, free t3 at 1.35 and free t4 at 0.26, Patient has been non complaint with medications, therefore we will just continue home dose of medication neck swelling which is likely a goiter- US neck for eval Accelerated hypertension, Non complaint with meds - continue dyazide, at the new medicine of lisinopril Increase activity PTOT, social work associate for discharge plan DVT prophylaxis: - SCDs DNR Patient from [facility] personal care facility may need to intermediate facility Continued [facility] stay due to: multiple IV medications needed Discharge planning: uncertain
[2017-12-29] VITALS: O2SAT 97
[2017-12-29 03:38] VITALS: BP 131/85; PULSE 57; TEMP 36.9; O2SAT 96
[2017-12-29 04:00] VITALS: O2SAT 96
[2017-12-29] MEDS: LEVOTHYROXINE 125 MCG TAB PO SCH (06:15)
[2017-12-29 07:24] VITALS: BP 130/68; PULSE 60; TEMP 37; O2SAT 98
[2017-12-29] MEDS: PANTOprazole SOD 40 MG TAB PO SCH (07:51)
[2017-12-29] MEDS: ASPIRIN 81 MG ECTAB PO SCH (07:51)
[2017-12-29] MEDS: TRIAMTERENE/HCTZ 37.5/25MG CAP PO SCH (07:51)
[2017-12-29] MEDS ORDERED: POTASSIUM CHLORIDE 20 MEQ TABCR PO ONE (08:30)
[2017-12-29] MEDS ORDERED: LISINOPRIL 10 MG TAB PO SCH (09:00)
[2017-12-29] MEDS ORDERED: POTASSIUM CHLORIDE 20 MEQ/15 ML UDC PO ONE (09:15)
--- NOTE | 2017-12-29 11:04 | DIAGNOSTIC IMAGING REPORT ---
THYROID ULTRASOUND HISTORY: neck swelling. ? Thyroid goiter COMPARISON: Cervical spine CT 12/27/2017. FINDINGS: Right lobe: 2.8 x 1.3 x 0.9 cm. No nodules. Heterogeneous with increased vascular flow. Left lobe: 2.2 x 0.6 x 0.8 cm. No nodules. Heterogeneous with increased vascular flow. Isthmus: 2 mm in thickness. No nodules. 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 No suspicious nodules. Electronically signed by: Lamont Thurman M.D. 12/29/2017 11:03 AM Dictated Date/Time: 12/29/2017 11:01 AM
[2017-12-29] MEDS ORDERED: LSN10 PO (12:04)
[2017-12-29 12:09] VITALS: BP 142/75; PULSE 63; TEMP 36.6; O2SAT 98
--- NOTE | 2017-12-29 12:13 | Discharge Instructions ---
Discharge Instructions Date of Service December 29, 2017. Admission Reason for Admission: FALL Discharge Discharge Diagnosis / Problem: Fall, HTN, hypothyroidism, medication noncompliance Discharge Goals Goal(s): Decrease discomfort, Improve function, Increase independence, Improve disease control, Learn about illness, Diagnostic testing, Therapeutic intervention, Prevent Disease Progression Activity Recommendations Activity Limitations: resume your previous activity . Instructions / Follow-Up Instructions / Follow-Up New medications: Lisinopril 10 mg daily- this is a blood pressure medication Resume all other regular prescribed medications. It is VERY IMPORTANT you take your medications as directed. FOLLOW-UPS: Please follow-up with your PCP within 5-7 days Please follow-up/keep all of your subspecialty appointments Current Hospital Diet Patient's current hospital diet: Regular Diet Discharge Diet Recommended Diet: Regular Diet Pending Studies Studies pending at discharge: no Medical Emergencies . Who to Call and When: Medical Emergencies: If at any time you feel your situation is an emergency, please call 911 immediately. . Non-Emergent Contact Non-Emergency issues call your: Primary Care Provider Call Non-Emergent contact if: you have a fever, your pain is not controlled, your pain is worsening, your pain is unusual for you, your pain is concerning you, you have any medication questions . . "Provider Documentation" section prepared by Genoveva Kilgore. .
--- NOTE | 2017-12-29 12:27 | Discharge Summary ---
Discharge Summary Date of Service December 29, 2017. Discharge Summary Admission Date: December 27, 2017 at 22:37 Discharge Date: December 29, 2017 Discharge Disposition: Home Principal Diagnosis: Fall Problems/Secondary Diagnoses: Unwitnessed fall w/ posterior scalp hematoma- etiology of fall unknown Lung nodule in the L apex area 13 mm Hypothyroidism medicine noncompliance HTN GERD grade I diastolic dysfunction Immunizations: Have You Had Influenza Vaccine: Unknown History of Tetanus Vaccine?: Unknown History of Pneumococcal: Unknown History of Hepatitis B Vaccine: Unknown Procedures: HEAD WITHOUT CONTRAST (CT) CLINICAL HISTORY: 82 years-old Female presenting with AMS, head lac. TECHNIQUE: Multidetector CT imaging of the head was performed without the use of intravenous contrast. IV contrast: None. A dose lowering technique was used consistent with the principles of ALARA (as low as reasonably achievable). COMPARISON: 01/19/2010. CT DOSE (mGy.cm): The estimated cumulative dose is 1269.55 mGy.cm. FINDINGS: Glove Former topogram: Unremarkable. Proportional ventricular and sulcal prominence, likely age-related parenchymal volume loss. Periventricular and subcortical white matter hypoattenuation, nonspecific but likely indicative of chronic small vessel ischemic change. No mass effect or midline shift. No hemorrhage or acute territorial infarct. No extra-axial fluid collection. Paranasal sinuses and mastoid air cells clear. Calvarium intact. Moderate subgaleal hematoma and overlying subcutaneous hematoma at the left parietal vertex. No subjacent osseous injury. IMPRESSION: 1. No acute intracranial abnormality. 2. Prominent subgaleal hematoma and overlying subcutaneous hematoma at the left parietal vertex. No subjacent osseous injury. Electronically signed by: Gigi Claros M.D. 12/27/2017 8:24 PM Dictated Date/Time: 12/27/2017 8:22 PM The status of this report is Signed. Draft = Not yet reviewed or approved by Radiologist. Signed = Reviewed and approved by Radiologist CHEST ONE VIEW PORTABLE CLINICAL HISTORY: 82 years-old Female presenting with AMS. TECHNIQUE: Portable upright AP view of the chest was obtained. COMPARISON: 02/24/2017. FINDINGS: Atherosclerosis of aortic arch. Cardiac silhouette mildly enlarged. Left basilar opacity similar to prior with a small left pleural effusion. No pneumothorax. Right lung and pleural space clear. Degenerative changes of the thoracic spine. Radiodensity projecting over the epigastrium is likely external to the patient. IMPRESSION: 1. Small left pleural effusion with suspected left basilar atelectasis. Electronically signed by: Gigi Claros M.D. 12/27/2017 8:38 PM Dictated Date/Time: 12/27/2017 8:37 PM The status of this report is Signed. Draft = Not yet reviewed or approved by Radiologist. Signed = Reviewed and approved by Radiologist CERVICAL SPINE W/O CLINICAL HISTORY: 82 years-old Female presenting with AMS, CHI, syncope, loss of consciousness. TECHNIQUE: Multidetector CT of the cervical spine was performed 1 IV contrast: None. A dose lowering technique was used consistent with the principles of ALARA (as low as reasonably achievable). COMPARISON: None. CT DOSE (mGy.cm): The estimated cumulative dose is 1269.55. FINDINGS: Glove Former topogram: Unremarkable. Normal cervical lordosis. Vertebral bodies maintain normal height and alignment. Intervertebral discs spaces preserved no advanced degenerative change. Osseous fusion across the left facet joints of C3-4. No acute fracture or subluxation. Facet arthropathy noted at several levels of mild degree. No significant osseous spinal canal or neural foraminal narrowing. Skull base intact. Lung apices demonstrate a 13 mm focal groundglass opacity at the left apex (series 5 image 489). Pleural parenchymal scarring suggested at the right apex. Paraspinal soft tissues within normal limits allowing for noncontrast technique. Limited intracranial evaluation within normal limits. IMPRESSION: 1. No acute osseous injury of the cervical spine. 2. Minimal degenerative change of the cervical spine. 3. Focal 13 mm groundglass nodule at the left apex. This was present on prior CT chest from February. Follow-up nonemergent dedicated CT chest recommended as an adenomatous lesion is not excluded. Please refer to below summary of Fleischner Society 2017 recommendations for follow-up of incidental CT nodules (H Fabrizio et al. Guidelines for management of incidental pulmonary nodules detected on CT images: From the Fleischner Society 2017. Radiology 2017; 284: 228-243.) SOLID NODULES Single nodule; size < 6 mm * Low risk patients: No routine follow-up * High risk patients: Optional CT at 12 months Single nodule; size 6-8 mm * Low risk patients: CT at 6-12 months, then consider CT at 18-24 months * High risk patients: CT at 6-12 months, then at 18-24 months Single nodule; size > 8 mm * Either low or high risk patients: Considered CT at 3 months, PET/CT, or tissue sampling Multiple nodules; size < 6 mm * Low risk patients: No routine follow up * High risk patients: Optional CT at 12 months Multiple nodules; size 6-8 mm * Low risk patients: CT at 3-6 months, then consider CT at 18-24 months * High risk patients: CT at 3-6 months, then at 18-24 months Multiple nodules; size > 8 mm * Low risk patients: CT at 3-6 months, then consider at 18-24 months * High risk patients: CT at 3-6 months, then at 18-24 months SUBSOLID NODULES Single ground-glass nodule * Nodule size < 6 mm: No routine follow-up * Nodule size > or = 6 mm: CT at 6-12 months to confirm persistence, then CT every 2 years until 5 years Single part-solid nodule * Nodule size < 6 mm: No routine follow-up * Nodules size > or = 6 mm: CT at 3-6 months to confirm persistence. If unchanged and solid component remains < 6 mm, annual CT should be performed for 5 years Multiple nodules * Nodule size < 6 mm: CT at 3-6 months. If stable, consider CT at 2 and 4 years. * Nodules size > or = 6 mm: CT at 3-6 months. Subsequent management based on the most suspicious nodule(s) NOTE: 1) These guidelines apply to incidental nodules. These guidelines do NOT apply to patients younger than 35 years, immunocompromised patients, or patients with cancer. 2) Risk categories: * Low risk patients: Minimal or absent history of smoking and/or other known risk factors * High risk patients: History of smoking, exposure to other carcinogens, emphysema, fibrosis, upper lobe location, family history of lung cancer, etc. 3) If a nodule up to 8 mm is partly solid or is ground glass, further follow-up is required after 24 months to exclude possible slow growing adenocarcinoma. Electronically signed by: Gigi Claros M.D. 12/27/2017 9:11 PM Dictated Date/Time: 12/27/2017 9:07 PM The status of this report is Signed. Draft = Not yet reviewed or approved by Radiologist. Signed = Reviewed and approved by Radiologist BRAIN WITHOUT CONTRAST HISTORY: 82 years-old Female syncope acute syncope COMPARISON: Brain MRI 01/24/2010, CT head 12/27/2017 TECHNIQUE: Multiplanar multisequence MRI of the brain was obtained without contrast. FINDINGS: 2 mm focus of cortically based increased diffusion-weighted signal of the right parietal lobe is noted on image 16 series 4 without definite decreased signal on ADC map. Increased T2 signal on the malleus identified within this distribution suggesting possible T2 shine through. No definite additional areas of restricted diffusion identified. Midline structures including the corpus callosum, optic chiasm, pituitary and pineal glands appear unremarkable in the sagittal T1 series. There is no cerebellar tonsillar herniation. Degenerative changes of the cervical spine. 7 mm T2 hyperintense focus of the right wolfgang suggests remote lacunar infarction. There is moderate atrophy with ex vacuo ventriculomegaly. Extensive and confluent areas of T2/FLAIR prolongation are noted within the white matter of the cerebral hemispheres bilaterally which has progressed from comparison study 01/24/2010 compatible with advanced chronic microvascular ischemic changes. No acute intracranial hemorrhage, midline shift, abnormal intra-axial collections or hydrocephalus. Large posterior left parietal scalp hematoma is redemonstrated measuring up to 1.4 x 4.8 x 5.8 cm in AP, transverse and craniocaudal dimensions demonstrating areas of slightly increased intrinsic T1 signal and peripheral blooming artifact. Major flow voids at the level of the skull base appear patent. Orbits are unremarkable without evidence of prior left cataract repair. Minimal mucosal thickening of the ethmoid air cells. Skull appears intact. Soft tissues are otherwise unremarkable. IMPRESSION: 1. Large posterior left parietal scalp hematoma redemonstrated without acute intracranial hemorrhage. 2. 2 mm focus of cortically based increased diffusion-weighted signal of the right parietal lobe without definite decreased signal on the ADC map suggests T2 shine through with subacute lacunar infarction felt to be less likely. No large acute or subacute infarct identified. 3. Atrophy with extensive chronic microvascular ischemic changes. Remote lacunar infarction of the right wolfgang. The above report was generated using voice recognition software. It may contain grammatical, syntax or spelling errors. Electronically signed by: Ayan Neville M.D. 12/28/2017 1:01 PM Dictated Date/Time: 12/28/2017 12:52 PM The status of this report is Signed. Draft = Not yet reviewed or approved by Radiologist. Signed = Reviewed and approved by Radiologist THYROID ULTRASOUND HISTORY: neck swelling. ? Thyroid goiter COMPARISON: Cervical spine CT 12/27/2017. FINDINGS: Right lobe: 2.8 x 1.3 x 0.9 cm. No nodules. Heterogeneous with increased vascular flow. Left lobe: 2.2 x 0.6 x 0.8 cm. No nodules. Heterogeneous with increased vascular flow. Isthmus: 2 mm in thickness. No nodules. 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 No suspicious nodules. Electronically signed by: Lamont Thurman M.D. 12/29/2017 11:03 AM Dictated Date/Time: 12/29/2017 11:01 AM The status of this report is Signed. Draft = Not yet reviewed or approved by Radiologist. Signed = Reviewed and approved by Radiologist ECHOCARDIOGRAM: Interpretation Summary * Name: RD WALTERS Study Date: 12/28/2017 10:26 AM BP: 167/70 mmHg * Patient Location: 2T\S\S242\S\2 HR: 63 * : 1935 (M/d/yyyy) Gender: Female Height: 63 in * Age: 82 yrs Ethnicity: [place] Weight: 149 lb * Ordering Physician: Teo Flaherty * Referring Physician: Self, Referred * Performed By: Delia Nixon, [facility] * * Reason For Study: SYNCOPE * BSA: 1.7 m2 * -- Conclusions -- * Left ventricular systolic function is normal. * No regional wall motion abnormalities noted. * Ejection Fraction = 65-70%. * There is mild concentric left ventricular hypertrophy. * Grade I diastolic dysfunction, (abnormal relaxation pattern). Procedure Details * A complete two-dimensional transthoracic echocardiogram was performed (2D, M- mode, Doppler and color flow Doppler). Left Ventricle * The left ventricle is grossly normal size. * There is mild concentric left ventricular hypertrophy. * Left ventricular systolic function is normal. * Ejection Fraction = 65-70%. * No regional wall motion abnormalities noted. Right Ventricle * The right ventricle is not well visualized. * The right ventricular systolic function is normal as assessed by tricuspid annular plane systolic excursion (TAPSE) (normal >1.5 cm). Atria * The left atrium is mildly dilated. * Right atrium not well visualized. * There is no evidence of atrial septal defect, but resolution does not allow assessment for a patent foramen ovale. Mitral Valve * The mitral valve is grossly normal. * There is no mitral valve stenosis. * Significant mitral regurgitation is absent. Tricuspid Valve * The tricuspid valve is not well visualized, but is grossly normal. * There is no tricuspid stenosis. * Significant tricuspid regurgitation is absent. Aortic Valve * The aortic valve is not well visualized. * The aortic valve opens well. * No hemodynamically significant valvular aortic stenosis. * There is no significant aortic regurgitation. Pulmonic Valve * The pulmonary valve is not well seen, but the Doppler examination is normal without significant regurgitation or stenosis. Great Vessels * The aortic root and proximal ascending aorta are normal sized. * The pulmonary is not well visualized. Pericardium/Pleural * There is no pericardial effusion. Great Vessels * Inferior vena cava not well visualized. Left Ventricular Diastolic Function * Grade I diastolic dysfunction, (abnormal relaxation pattern). Medication Reconciliation New Medications: Lisinopril (Zestril) 10 Mg Tab 10 MG PO QAM for 30 Days, #30 TAB Continued Medications: Aspirin (Aspirin Ec) 81 Mg Tab 81 MG PO DAILY Azelastine Hcl (Astelin Nasal [place]) 200 Sprays/30 Ml [place] 1-2 SPRAYS NA BID PRN for UNDECIDED Levothyroxine Sodium (Levothyroxine Sodium) 125 Mcg Tab 125 MCG PO DAILY PRN for UNDECIDED Omeprazole (Prilosec) 20 Mg Capcr 20 MG PO DAILY Triamterene/Hctz (Dyazide 37.5MG/25MG) Cap 1 CAP PO DAILY Referrals At Discharge Follow up Referrals: Family Practice Referral - Within 1 Week with Gigi Swan M.D. Discharge Exam Review of Systems: Constitutional: No fever, No chills, No sweats, No weakness, No fatigue Eyes: No worsening of vision ENT: No hearing loss Respiratory: No cough, No shortness of breath, No hemoptysis Cardiovascular: No chest pain, No edema, No palpitations Abdomen: No pain, No nausea, No vomiting, No diarrhea, No constipation Musculoskeletal: No joint pain, No muscle pain, No swelling, No calf pain Genitourinary - Female: No dysuria, No hematuria Neurologic: No weakness, No numbness/tingling Psychiatric: No depression symptoms, No anxiety Endocrine: No fatigue Hematologic / Lymphatic: No abnormal bleeding/bruising Integumentary: No rash, No itch, No new/changing skin lesions Physical Exam: General Appearance: no apparent distress Eyes: normal inspection, PERRL ENT: hearing grossly normal Neck: supple, + thyroid abnormalities (enlarged ) Respiratory/Chest: lungs clear, no respiratory distress, no accessory muscle use Cardiovascular: regular rate, rhythm Abdomen / GI: normal bowel sounds, non tender, soft Extremities: no calf tenderness, no pedal edema Neurologic/Psychiatric: alert, normal mood/affect, oriented x 3 Skin: normal color, warm/dry, no rash Hospital Course 82 y/o F admitted on December 27, 2017 because of with PMH of hypothyroidism, HTN presented to the ER after she sustained a fall Unwitnessed fall w/ posterior scalp hematoma- etiology of fall unknown: - Admitted to tele for cardiac monitoring- no acute events - No s/s of infection- CXR and UA w/out acute infectious findings, no fevers or leukocytosis - Checked orthostatics- negative - Brain MRI- negative for acute or subacute CVA - ECHO- preserved EF, grade I diastolic dysfunction, no wall abnormalities, +LVH Lung nodule in the L apex area 13 mm: Follow-up imaging recommended in 3 months Hypothyroidism w/ medicine noncompliance: - TSH 187, free t3 1.35, free t4 at 0.26 - Educated on medication compliance - Continue Synthroid at current dose- recommend 6-8 week follow-up - Thyroid US- w/out suspicious nodules HTN- medication no compliance: - Continue Dyazide - Added Lisinopril 10 mg daily - Educated on medication compliance GERD: Protonix while inpatient- resume Prilosec at discharge DVT prophylaxis: SCDs/TEDs, ambulation Code status: LEVEL V, DNR Dispo: Discharge back to personal [facility] at the [facility] Total Time Spent: Greater than 30 minutes This includes examination of the patient, discharge planning, medication reconciliation, and communication with other providers. Discharge Instructions Please refer to the electronic Patient Visit Report (Discharge Instructions) for additional information. Follow-Up Please follow-up with your PCP within 5-7 days Please follow-up/keep all of your subspecialty appointments Additional Copies To Gigi Swan M.D.
[2017-12-29 14:01] VITALS: BP 142/75; PULSE 63; TEMP 36.6; O2SAT 98
== END 2017-12-29 14:15 | disposition home or self-care (01) | DRG 312 ==
LOC: EDBD 18:38 → C.EDB 18:40 → C.2T 22:37 → ENRESERV 23:00
PROVIDERS: ADMIT Family Medicine; ATTEND Hospitalist
DX: R55 Syncope and collapse (principal); S00.03XA Contusion of scalp, initial encounter; R91.1 Solitary pulmonary nodule; I11.9 Hypertensive heart disease without heart failure; E03.9 Hypothyroidism, unspecified; K21.9 Gastro-esophageal reflux disease without esophagitis; Z91.14 Patient's other noncompliance with medication regimen; Z79.899 Other long term (current) drug therapy; Z79.82 Long term (current) use of aspirin; Z66 Do not resuscitate; Z87.891 Personal history of nicotine dependence; W19.XXXA Unspecified fall, initial encounter; Y92.039 Unspecified place in apartment as the place of occurrence of the external cause; Y99.8 Other external cause status

== ENCOUNTER → 2018-04-15 | Outpatient (CLI) | payer OTHER ==
[~2018-04-15] MED LIST changes: +ASTN; +LEVO125T5 PO; +LSN10 PO
--- NOTE | 2018-04-24 11:50 | CODING QUERY MEDICAL NECESSITY ---
TREATMENT RENDERED WITHOUT A DIAGNOSIS To promote full compliance with coding requirements relating to patient care, physician participation is requested in all cases of rug inspector helper uncertainty. Please assist us with providing a diagnosis/symptom for the test(s) below: A diagnosis/symptom was not documented on your Order. A valid diagnosis/symptom is required to bill all insurances. Please remember that we are unable to code a diagnosis of rule out, probable, possible, questionable, or suspected. Tests that require a diagnosis: DOS: 04/15/18 * TSH DIAGNOSIS: Provider Signature: Date: Thank you Gretta Scott [employer] Information Management Once completed, please kindly fax back to [phone] For questions please call [phone]
== END ==
LOC: C.LABVPSUW 08:38
PROVIDERS: ATTEND Internal Medicine Critical Care Medicine
DX: E03.9 Hypothyroidism, unspecified (principal)